=== PATIENT | male | born 1950 | race Caucasian/White ===

== ENCOUNTER 2018-04-17 23:44 | Emergency (ER) | payer SELFPAY ==
[~2018-04-17] VITALS: Ht 182.9 cm; Wt 81.6 kg
[2018-04-17 23:45] VITALS: BP 153/86
--- NOTE | 2018-04-18 00:19 | NUR ---
MISHA CASTAÑEDA TO BED 1 IN ED. REPORT TO CAROL ALCARAZ.
--- NOTE | 2018-04-18 00:20 | NUR ---
PT BIBA C/O LLQ ABD PAIN, CURRENTLY 0/10 BUT CAN REACH 7/10. NOTED BLOOD IN LOOSE STOOL X 6 MONTHS. PT DENIES N/V/D; SKIN IS INTACT, PINK/WARM/DRY; AAOX4, PERRL, WITH EVEN AND STEADY GAIT; LUNGS CLEAR BL, BREATHING UNLABORED; HR EVEN AND REGULAR, BL PERIPHERAL PULSES PRESENT; BS ACTIVE X4, NO TENDERNESS TO PALPATION, NO HEPATOSPLENOMEGALLY PALPATED, RESONANT TO PERCUSSION; PT DENIES ANY FEVER, CP, SOB, OR COUGH AT THIS TIME; PT STATES 0/10 PAIN AT THIS TIME; VSS; PATIENT POSITIONED FOR COMFORT; HOB ELEVATED; BEDRAILS UP X2; BED DOWN. PMHX: ALCOHOLIC, PTSD
[2018-04-18] MEDS ORDERED: ONDANSETRON 4 MG/2 ML VIAL IVP ONE (00:45)
[2018-04-18] MEDS ORDERED: MORPHINE SULFATE 4 MG/ML SYR IVP ONE (00:45)
--- NOTE | 2018-04-18 01:21 | NUR ---
REPORT GIVEN TO ALISON ALCARAZ
[2018-04-18 01:25] LABS: HEMATOCRIT 42.4 % (36-52); HEMOGLOBIN 14.3 g/dL (12.0-18.0); MEAN CORPUSCULAR HEMOGLOBIN 35 pg (27-31); MEAN CORPUSCULAR HGB CONC 34 g/dL (33-37); MEAN CORPUSCULAR VOLUME 104.8 fL (80-94); PLATELET COUNT (AUTO) 165 K/uL (140-450); RED BLOOD CELL COUNT(AUTO) 4.05 MIL/uL (4.20-6.10); WHITE BLOOD COUNT (AUTO) 4.7 K/uL (4.8-10.8)
--- NOTE | 2018-04-18 01:25 | NUR ---
PATIENT RESTING AT THIS TIME. NO SIGNS OF DISTRESS.
[2018-04-18 01:42] LABS: CARBON DIOXIDE 25.7 mmol/L (21-32); CREATININE 0.7 mg/dL (0.7-1.3); POTASSIUM 3.7 mmol/L (3.5-5.1)
[2018-04-18 01:53] LABS: APPEARANCE,URINE CLEAR (CLEAR); BILIRUBIN,URINE NEGATIVE (NEGATIVE); BLOOD, URINE TRACE-I (NEGATIVE); COLOR,URINE YELLOW (YELLOW); LEUKOCYTE ESTERASE ,URINE NEGATIVE (NEGATIVE); NITRITE, URINE NEGATIVE (NEGATIVE); UGLUCOSE NEGATIVE (NEGATIVE)
[2018-04-18 01:55] LABS: ALBUMIN 3.5 g/dL (3.4-5.0); TOTAL BILIRUBIN 0.7 mg/dL (0.0-1.0)
[2018-04-18 01:57] LABS: EOSINOPHILS % (MANUAL) 5 % (0-4); LYMPHOCYTES % (MANUAL) 44 % (20-46); MONOCYTES % (MANUAL) 14 % (5-12)
[2018-04-18 02:02] LABS: RBC,URINE 0-5 (RARE) /HPF (0-5); WBC,URINE NONE SEEN /HPF (0-5)
--- NOTE | 2018-04-18 03:05 | NUR ---
PATIENT TAKEN TO CT WITH TECH.
--- NOTE | 2018-04-18 03:19 | NUR ---
PATIENT RETURN FROM CT.
[2018-04-18 04:50] VITALS: BP 107/81
--- NOTE | 2018-04-18 04:50 | NUR ---
Patient discharged with v/s stable. Written and verbal after care instructions given and explained. Patient alert, oriented and verbalized understanding of instructions. Ambulatory with steady gait. All questions addressed prior to discharge. ID band removed. Patient advised to follow up with PMD. Rx of BENTYL 20MG given. Patient educated on indication of medication including possible reaction and side effects. Opportunity to ask questions provided and answered.
--- NOTE | 2018-04-18 04:55 | NUR ---
ABRAHAM CALLED, MADE AWARE THAT PT IS GOING TO BE DISCHARGED. ABRAHAM WILL ARRANGE FOR TAXI PICKUP AND PAYMENT.
== END 2018-04-18 04:50 | disposition home or self-care (01) ==
LOC: MED 23:44
DX: R10.32 Left lower quadrant pain (principal); R19.7 Diarrhea, unspecified; F10.10 Alcohol abuse, uncomplicated
CPT/HCPCS: 36415; 71045; 74177; 80053; 81001; 83605; 83690; 84484; 85025; 85610; 85730; 86886; 86900; 86901; 93005; 96374; 96375; 99285; J2270; J2405; Q9967